=== PATIENT | female | born 1975 | race Two or more races ===

== ENCOUNTER 2017-09-17 13:10 | Outpatient (CLI) | payer OTHER | END 2017-09-17 13:21 | disposition home or self-care (01) | LOC: SONOGRAMA 13:10 | DX: N60.11 Diffuse cystic mastopathy of right breast (principal); N60.12 Diffuse cystic mastopathy of left breast ==

== ENCOUNTER 2018-03-22 08:15 | Inpatient (IN) | payer OTHER ==
[~2018-03-22] VITALS: Ht 157.5 cm; Wt 67.1 kg
[2018-03-22] MEDS ORDERED: CELEXA10 MG PO (09:19)
[2018-03-22] MEDS ORDERED: ZYRTEC10 M3 PO (09:20)
[2018-03-22] MEDS ORDERED: ZANTAC150 M3 PO (09:20)
== END 2018-03-26 13:19 | disposition home or self-care (01) | DRG 581 ==
LOC: O/R 03-25 06:05 → RECOVERY 03-25 08:15 → SURG 03-25 23:53
PROVIDERS: Plastic Surgery; Surgery
PROC: 0HTT0ZZ Resection of Right Breast, Open Approach (ICD-10-PCS; principal; 2018-03-25 14:00)
PROC: 07B50ZX Excision of Right Axillary Lymphatic, Open Approach, Diagnostic (ICD-10-PCS; 2018-03-25 14:00)
DX: C50.811 Malignant neoplasm of overlapping sites of right female breast (principal); Z90.11 Acquired absence of right breast and nipple

== ENCOUNTER 2018-07-04 06:05 | Day surgery (SDC) | payer OTHER ==
[~2018-07-04 06:05] MED LIST: BUSPIRONE HCL10 MG PO; CELEXA10 MG PO; ZANTAC150 M3 PO; ZYRTEC10 M3 PO
== END 2018-07-04 17:40 | disposition home or self-care (01) ==
LOC: CIR.AMB 06:05 → SURH 09:15 → EDSTATUS 09:15 → CIR.AMB 17:40
PROVIDERS: Plastic Surgery
PROC: 0HRT0JZ Replacement of Right Breast with Synthetic Substitute, Open Approach (ICD-10-PCS; 2018-07-04)
PROC: 0H0T0JZ Alteration of Right Breast with Synthetic Substitute, Open Approach (ICD-10-PCS; 2018-07-04)
PROC: 0H0U0ZZ Alteration of Left Breast, Open Approach (ICD-10-PCS; 2018-07-04)
PROC: 0HPT0JZ Removal of Synthetic Substitute from Right Breast, Open Approach (ICD-10-PCS; principal; 2018-07-04 09:00)
DX: N65.1 Disproportion of reconstructed breast (principal); N62 Hypertrophy of breast; Z90.11 Acquired absence of right breast and nipple
CPT/HCPCS: 19330; 19342; 19366; 19316; C1789

== ENCOUNTER 2022-01-05 08:46 | Emergency (ER) | payer OTHER ==
[~2022-01-05] VITALS: Ht 157.5 cm; Wt 64.0 kg
== END 2022-01-05 12:30 | disposition home or self-care (01) ==
LOC: ER 08:46
DX: U07.1 COVID-19 (principal); N93.9 Abnormal uterine and vaginal bleeding, unspecified; N83.201 Unspecified ovarian cyst, right side